=== PATIENT | female | born 1970 | race African-American/Black ===

== ENCOUNTER 2018-06-26 17:51 | Emergency (ER) | payer BC ==
--- NOTE | 2018-06-26 18:15 | ER Document Report ---
HPI - HPI Patient complains to provider of: left shoulder pain Onset: Other - 5 days Pain Level: 5 Context: 48-year-old female complaining of spontaneous onset of left shoulder pain. Hurts more when she internal externally rotates that and when she abducts it. No specific injury. Associated Symptoms: None Exacerbated by: Movement Relieved by: Denies - ROS ROS below otherwise negative: Yes Systems Reviewed and Negative: Yes All other systems reviewed and negative - REPRODUCTIVE Reproductive: DENIES: : - MUSCULOSKELETAL Musculoskeletal: REPORTS: Extremity pain Past Medical History - General Information source: Patient - Social History Smoking Status: Current Every Day Smoker Lives with: Family Family History: None Patient has suicidal ideation: No Patient has homicidal ideation: No - Past Medical History Cardiac Medical History: Reports: Hx Hypertension Pulmonary Medical History: Reports: Hx COPD Renal/ Medical History: Reports: Hx Kidney Stones. Denies: Hx Peritoneal Dialysis Surgical Hx: Negative - Immunizations Hx Diphtheria, Pertussis, Tetanus Vaccination: No Vertical Provider Document - CONSTITUTIONAL Agree With Documented VS: Yes Exam Limitations: No Limitations - INFECTION CONTROL TRAVEL OUTSIDE OF THE [place] IN LAST 30 DAYS: No - NECK Neck: Supple - Nontender - RESPIRATORY Respiratory: Breath Sounds Normal, No Respiratory Distress - CARDIOVASCULAR Cardiovascular: Regular Rate, Regular Rhythm - MUSCULOSKELETAL/EXTREMETIES Musculoskeletal/Extremeties: Tender - left bicep tendon at the bicepital groove , deltoid muscle. negative: Edema Notes: increased pain with external rotation. no deepika tenderness. - NEURO Level of Consciousness: Awake - DERM Integumentary: No Rash Course - Re-evaluation Re-evalutation: 06/26/18 19:29 X-rays negative per radiologist, I also looked at the films and they were negative as well. We will place the patient in a sling and recommend heat Tylenol and Motrin - Vital Signs Vital signs: Temp Pulse Resp BP Pulse Ox 98.8 F 82 18 134/89 H 99 06/26/18 17:59 06/26/18 17:59 06/26/18 17:59 06/26/18 17:59 06/26/18 17:59 Procedures - Immobilization Left Arm Time completed: 19:50 Pre-Proc Neuro Vasc Exam: Normal Immobilizer type: Sling Performed by: RN Post-Proc Neuro Vasc Exam: Normal Alignment checked and good: Yes Discharge - Discharge Clinical Impression: Muscle strain Left shoulder pain Qualifiers: Chronicity: acute Qualified Code(s): M25.512 - Pain in left shoulder Condition: Good Disposition: HOME, SELF-CARE Instructions: Acetaminophen, Ibuprofen (General) ([facility]), Sling to be Used ([facility]) , Temporary Sling ([facility]), Warm Packs ([facility]) Additional Instructions: Sling a few days to relax the muscle and tendon Tylenol up to 4000 mg a day for pain Motrin 800 mg up to 3 times a day for inflammation Warm compress See orthopedic doctor if this persists Prescriptions: Ibuprofen [Motrin 800 mg Tablet] 800 mg PO Q8HP PRN #30 tablet PRN Reason: Forms: Return to Work Referrals: JAIME CAIN MD [ACTIVE STAFF] - Follow up as needed
[2018-06-26 18:49] VITALS: BP 144/81
--- NOTE | 2018-06-26 19:21 | RADIOLOGY REPORT (SQ) ---
EXAM DESCRIPTION: SHOULDER LEFT 2 OR MORE VIEWS COMPLETED DATE/TIME: 06/26/2018 7:07 pm REASON FOR STUDY: pain left shoulder COMPARISON: None. NUMBER OF VIEWS: Three views. TECHNIQUE: Internal rotation, external rotation, and Y view images acquired of the left shoulder. LIMITATIONS: None. FINDINGS: MINERALIZATION: Normal. BONES: No acute fracture or dislocation. No worrisome bone lesions. JOINTS: No dislocation. VISUALIZED LUNGS AND RIBS: No pneumothorax. No rib fracture. SOFT TISSUES: No radiopaque foreign body. OTHER: No other significant finding. IMPRESSION: NEGATIVE STUDY OF THE LEFT SHOULDER. NO RADIOGRAPHIC EVIDENCE OF ACUTE INJURY. TECHNICAL DOCUMENTATION: JOB ID: [id number] [place]-72 2010 [employer]- All Rights Reserved Reading location - IP/workstation name: [email or web address]
== END 2018-06-26 19:55 | disposition home or self-care (01) ==
LOC: ER 17:51
DX: M25.512 Pain in left shoulder (principal); F17.200 Nicotine dependence, unspecified, uncomplicated; I10 Essential (primary) hypertension; J44.9 Chronic obstructive pulmonary disease, unspecified; Z87.442 Personal history of urinary calculi
CPT/HCPCS: 99283

== ENCOUNTER 2019-05-04 10:55 | Emergency (ER) | payer BC ==
--- NOTE | 2019-05-04 12:16 | ER Document Report ---
HPI - HPI Patient complains to provider of: fall, right neck and right thigh pain Time Seen by Provider: 05/04/19 11:52 Onset: Other - 5 days ago Onset/Duration: Sudden Quality of pain: Achy Severity: Mild Pain Level: 2 Context: 49 yr old female with the listed pmh, here for right neck/shoulder pain and right thigh pain after an accidental mechanical fall off a two step ladder 5 days ago with continued pain since. has continued to go to work since; however, due to her pain today she called out and is requesting a work note. denies any preceding fall sx. no pain anywhere else. no blood thinners, intoxication, or hx of this before. denies . pt is able to walk. denies hitting her head. no loc. no vomiting, numbness, tingling, weakness, seizures, ams, incontinence, saddle anesthesia, change in bowel or bladder, or any other sx. otc meds helping some. she is requesting a work note, and scripts for robaxin and aleve, stating she has had these before in the past and can take them and they work well. no spinal surgeries. she hasn't sought care until now. no other complaints at this time. she doesn't want any imaging either. Exacerbated by: Movement Relieved by: Remaining still Similar symptoms previously: No Recently seen / treated by doctor: No - ROS Systems Reviewed and Negative: Yes All other systems reviewed and negative - to include 10, unless mentioned in the hpi - REPRODUCTIVE Reproductive: DENIES: : Past Medical History - General Information source: Patient - Social History Smoking Status: Unknown if Ever Smoked Frequency of alcohol use: unknown Drug Abuse: None Family History: None Patient has suicidal ideation: No Patient has homicidal ideation: No - Past Medical History Cardiac Medical History: Reports: Hx Hypertension Pulmonary Medical History: Reports: Hx COPD Renal/ Medical History: Reports: Hx Kidney Stones. Denies: Hx Peritoneal Dialysis - Immunizations Hx Diphtheria, Pertussis, Tetanus Vaccination: No Vertical Provider Document - INFECTION CONTROL TRAVEL OUTSIDE OF THE [place] IN LAST 30 DAYS: No - HEENT Notes: GENERAL_APPEARANCE: well_nourished, alert, cooperative, no obvious discomfort. Pleasant, obese middle aged female, smiling, speaking in full sentences, in no sign of pain or resp distress, easily sitting up. VITALS: reviewed, see vital signs table. HEAD: normocephalic and atraumatic, no raccoon eyes, no bailey signs. no swelling or ttp. EARS: canals_clear_bilat, TMs_clear, no_discharge_from_ears. no hemotympanum EYES: EOMI without pain, conjunctiva_clear. PERRL, eyelids wnl. no drainage. no ttp or crepitation of the orbits. no sign of orbital/periorbital cellulitis. no hyphema. MOUTH: no_lacerations inside_mouth. no broken teeth. no tmj clicking or ttp. pharynx wnl. tongue protrudes midline. no drooling, tripoding, voice change, or stridor, no thrush or oral lesions. no tongue or lip swelling. NOSE: no drainage or epistaxis NECK: no_swelling on the neck. no midline bony tenderness. no step offs or deformities. there is mild ttp over the right trapezius musculature. spasm noted. palpation here reproduces pts neck/shoulder pain exactly. no overlying skin changes. no jvd. no carotid bruit. full rom. full strength. no meningeal signs. no sign of central cord syndrome. HEART: normal_rate, normal_rhythm, LUNGS: ctab. no chest wall ttp. no overlying skin changes. no flail chest or crepitation. ABDOMEN: normal_BS, soft, no_abd_tenderness, no rebound, guarding, distension, or peritoneal signs. no cva ttp. no overlying skin changes. BACK: no midline bony tenderness. no step offs or deformities RECTAL: deferred, however, no sign of loss of bowel or bladder or soiling of clothing. EXTREMITIES: strength 5/5 in all_extremities, good pulses all_extremities, no_abrasions\lacerations in the extremities, no_swelling\tenderness in the extremities other than over right mid thigh midshaft lateral femur. no overlying skin changes. no crepitation. full rom. normal gait. good hand stripper color. brisk cap refill. no shortening or rotation of the limbs or other signs of deformities unless otherwise noted. neg solo sign. neg guo squeeze. no foot drop. SKIN: warm, dry, good_color. no other grossly visible overlying skin changes or signs of trauma unless otherwise noted. NEURO: cranial nerves 2 - 12 intact, motor_intact, sensory_intact. cerebellar function intact GLASCOW_COMA_SCORE: (adult) - eyes_open_spontaneously_4, verbal_converses_and_oriented_5, motor_obeys_commands_6, glasgow_coma_total_15, MENTAL_STATUS: speech_clear, oriented_X_3, responds_appropriately to questions. Course - Re-evaluation Re-evalutation: pt here for a low impact minor accidental mechanical fall off a 2 step ladder with right trapezius muscle and right thigh muscle pain since. denies hitting head. no loc. no vomiting. no pain anywhere else. is able to walk. requesting a work note. pt doesn't want any imaging, is requesting robaxin and aleve for dc. otc meds helping pain. advised sx care. pain reproducible and spasms noted. sx likely musculoskeletal. will dc with a few robaxin. gave medication precautions. ice/heat to the area. otc meds for pain if not allergic. she is neurononfocal. no sign of cauda equina, spinal cord involvement, or central cord syndrome. advised to f/u with pcp in 1-2 days. return for any worsening symptoms. vss. well appearing. satting well on ra. neurononfocal. pt understands and agrees to plan. On reexam, pt remained stable. nontoxic. well appearing. pain controlled. tolerating po. requesting to go home. Documentation achieved through voice recording which my lead to some occasional accidental typographical errors. Extensive efforts have been made to proof read documentation to make sure these are the least as possible. 05/23/19 23:10 - Vital Signs Vital signs: Temp Pulse Resp BP Pulse Ox 98.2 F 92 20 147/93 H 98 05/04/19 11:00 05/04/19 11:00 05/04/19 11:00 05/04/19 11:00 05/04/19 11:00 Temp Pulse Resp BP Pulse Ox 05/04/19 12:31 98.1 F 71 18 141/88 H 100 05/04/19 11:00 98.2 F 92 20 147/93 H 98 Discharge - Discharge Clinical Impression: Strain of cervical portion of right trapezius muscle, Pain in right thigh Fall Qualifiers: Encounter type: initial encounter Qualified Code(s): W19.XXXA - Unspecified fall, initial encounter Condition: Stable Disposition: HOME, SELF-CARE Instructions: Shoulder Injury ([facility]), Leg Pain Nonspecific ([facility]) Additional Instructions: Follow-up with PCP 1 to 2 days. Return for any worsening symptoms. Ice/heat to the area. Do not drive, work, or operate machinery while taking the muscle relaxers. you can take Aleve as needed for any pain if not allergic. no other nsaids with the aleve. Follow-up with your PCP for recheck within 1 week if you are still having pain as you may need imaging as discussed. Prescriptions: Methocarbamol [Robaxin] 1,000 mg PO QID PRN #40 tablet PRN Reason: Muscle Spasms Forms: Return to Work
[2019-05-04 12:34] VITALS: BP 141/88
== END 2019-05-04 12:34 | disposition home or self-care (01) ==
LOC: ER 10:55
DX: S29.012A Strain of muscle and tendon of back wall of thorax, initial encounter (principal); R07.81 Pleurodynia; M79.18 Myalgia, other site; M54.2 Cervicalgia; W11.XXXA Fall on and from ladder, initial encounter; I10 Essential (primary) hypertension; J44.9 Chronic obstructive pulmonary disease, unspecified; E66.9 Obesity, unspecified
CPT/HCPCS: 99283

== ENCOUNTER 2019-08-03 04:45 | Emergency (ER) | payer BC ==
--- NOTE | 2019-08-03 06:20 | ER Document Report ---
ED General - General Chief Complaint: Swelling of Tongue Stated Complaint: TONGUE SWELLING Time Seen by Provider: 08/03/19 06:20 TRAVEL OUTSIDE OF THE [place] IN LAST 30 DAYS: No - HPI Patient complains to provider of: tongue swelling Notes: patient woke this am with right sided tongue swelling not on any prescription medications no new exposures or intakes mild right sided tongue pain but no redness/bleeding/scabbing to suggest injury no h/o this previously no family h/o similar no nausea/vomiting/wheezing no difficulty speaking or swallowing no neck pain or swelling - Related Data Allergies/Adverse Reactions: acetaminophen [From Percocet] Allergy (Verified 05/04/19 10:56) oxycodone [From Percocet] Allergy (Verified 05/04/19 10:56) Past Medical History - Social History Smoking Status: Current Every Day Smoker Frequency of alcohol use: Rare Drug Abuse: None Family History: None Patient has suicidal ideation: No Patient has homicidal ideation: No - Past Medical History Cardiac Medical History: Reports: Hx Hypertension Pulmonary Medical History: Reports: Hx COPD Renal/ Medical History: Reports: Hx Kidney Stones. Denies: Hx Peritoneal Dialysis - Immunizations Hx Diphtheria, Pertussis, Tetanus Vaccination: No Review of Systems - Review of Systems Constitutional: No symptoms reported EENT: Other - tongue swelling. denies: Difficulty swallowing, Throat swelling, Dental problem Cardiovascular: No symptoms reported Respiratory: No symptoms reported Gastrointestinal: No symptoms reported Genitourinary: No symptoms reported Female Genitourinary: No symptoms reported Musculoskeletal: No symptoms reported Skin: No symptoms reported Hematologic/Lymphatic: No symptoms reported Neurological/Psychological: No symptoms reported Physical Exam - Vital signs Vitals: Temp Pulse Resp BP Pulse Ox 98.1 F 74 17 151/93 H 97 08/03/19 04:54 08/03/19 04:54 08/03/19 04:54 08/03/19 04:54 08/03/19 04:54 Interpretation: Normal - General General appearance: Appears well, Alert - HEENT Head: Normocephalic, Atraumatic Eyes: Normal Pupils: PERRL Mouth/Lips: Other - the tongue is mildly enlarged R>L. midline and normal appearance of uvula. no gum swelling. no lip swelling. able to phonate normally - Respiratory Respiratory status: No respiratory distress Chest status: Nontender Breath sounds: Normal Chest palpation: Normal - Cardiovascular Rhythm: Regular Heart sounds: Normal auscultation Murmur: No - Abdominal Inspection: Normal Distension: No distension Bowel sounds: Normal Tenderness: Nontender Organomegaly: No organomegaly - Back Back: Normal, Nontender - Extremities General upper extremity: Normal inspection, Nontender, Normal color, Normal ROM, Normal temperature General lower extremity: Normal inspection, Nontender, Normal color, Normal ROM, Normal temperature, Normal weight bearing. No: Yamilka's sign - Neurological Neuro grossly intact: Yes Cognition: Normal Orientation: AAOx4 [place] Coma Scale Eye Opening: Spontaneous [place] Coma Scale Verbal: Oriented [place] Coma Scale Motor: Obeys Commands [place] Coma Scale Total: 15 Speech: Normal Motor strength normal: LUE, RUE, LLE, RLE Sensory: Normal - Psychological Associated symptoms: Normal affect, Normal mood - Skin Skin Temperature: Warm Skin Moisture: Dry Skin Color: Normal Course - Re-evaluation Re-evalutation: 08/03/19 06:31 tongue is clearly swollen will treat w/ solumedrol/pepcid/benadryl in ED 08/03/19 07:57 feels better understand return precautions understands not to drive after receiving iv benadryl - Vital Signs Vital signs: Temp Pulse Resp BP Pulse Ox 98.1 F 74 17 151/93 H 97 08/03/19 04:54 08/03/19 04:54 08/03/19 04:54 08/03/19 04:54 08/03/19 04:54 Discharge - Discharge Clinical Impression: Tongue swelling, Elevated blood pressure reading Condition: Stable Disposition: HOME, SELF-CARE Instructions: Angioedema ([facility]) Additional Instructions: return to ED with worsening of condition take medicine as directed follow up with primary doctor Prescriptions: Prednisone [Deltasone 20 mg Tablet] 3 tab PO DAILY 5 Days #15 tablet Famotidine [Pepcid 20 mg Tablet] 20 mg PO BID #10 tablet Cetirizine HCl [Zyrtec 10 mg Tablet] 1 tab PO DAILY #10 tablet Forms: Elevated Blood Pressure Referrals: JASON MAIER MD [HONORARY] - Follow up as needed
[2019-08-03] MEDS ORDERED: METHYLPREDNISOLONE INJ 125 MG/2 ML SDV IV ONE (06:28)
[2019-08-03] MEDS ORDERED: FAMOTIDINE INJ/PF 20 MG/2 ML SDV IV ONE (06:29)
[2019-08-03] MEDS ORDERED: DIPHENHYDRAMINE HCL 50 MG/ML VIAL IV ONE (06:29)
[2019-08-03 08:25] VITALS: BP 125/84
== END 2019-08-03 08:24 | disposition home or self-care (01) ==
LOC: ER 04:45
DX: R22.0 Localized swelling, mass and lump, head (principal); I10 Essential (primary) hypertension; F17.200 Nicotine dependence, unspecified, uncomplicated; J44.9 Chronic obstructive pulmonary disease, unspecified
CPT/HCPCS: J1200; J2930; S0028; 96374; 96375; 99283

== ENCOUNTER 2020-01-09 11:24 | Emergency (ER) | payer BC ==
--- NOTE | 2020-01-09 12:22 | ER Document Report ---
ED Extremity Problem, Lower - General Chief Complaint: Leg Pain Stated Complaint: RIGHT THIGH PAIN, SWELLING Time Seen by Provider: 01/09/20 12:14 Primary Care Provider: [facility] [[facility]] - Follow up as needed PANDA CADENA DO [Primary Care Provider] - Follow up as needed Mode of Arrival: Ambulatory Information source: Patient Notes: 49-year-old female presented to ED for complaint of right hip pain and swelling times a month. She states the pain is been getting worse so she came to the emergency room. She does stand on her feet a lot and has 2 jobs and does not take any time off. She is alert oriented respirations regular nonlabored speaking in full sentences. Her primary care is Dr. Cadena she states she has not talked to him about this pain yet. TRAVEL OUTSIDE OF THE [place] IN LAST 30 DAYS: No - HPI Patient complains to provider of: Pain Location: Buttock, Hip Occurred: Other - Last month Onset/Duration: Gradual, Persistent Quality of pain: Sharp, Throbbing Severity: Severe Pain Level: 5 Context: Other - No signs or symptoms of cauda equina, no loss control of bowel bladder, no saddle anesthesia, no loss of sensation or control of the lower legs Recent injury: No Associated symptoms: Painful ambulation Exacerbated by: Nothing Relieved by: Nothing - Related Data Allergies/Adverse Reactions: acetaminophen [From Percocet] Allergy (Verified 01/09/20 12:15) oxycodone [From Percocet] Allergy (Verified 01/09/20 12:15) Past Medical History - General Information source: Patient - Social History Smoking Status: Current Every Day Smoker Family History: None - Past Medical History Cardiac Medical History: Reports: Hx Hypertension Pulmonary Medical History: Reports: Hx Bronchitis EENT Medical History: Reports: None Neurological Medical History: Reports: None Endocrine Medical History: Reports: None Renal/ Medical History: Reports: Hx Kidney Stones Malignancy Medical History: Reports: None GI Medical History: Reports: None Musculoskeletal Medical History: Reports Hx Musculoskeletal Trauma Skin Medical History: Reports None Psychiatric Medical History: Reports: None Traumatic Medical History: Reports: None Infectious Medical History: Reports: None Past Surgical History: Reports: Other - Embolization to the fibroid in the u terus - Immunizations Hx Diphtheria, Pertussis, Tetanus Vaccination: No Review of Systems - Review of Systems Constitutional: No symptoms reported EENT: No symptoms reported Cardiovascular: No symptoms reported Respiratory: No symptoms reported Gastrointestinal: No symptoms reported Genitourinary: No symptoms reported Female Genitourinary: No symptoms reported Musculoskeletal: Back pain, Joint pain - Right hip, Muscle pain, Muscle stiffness Skin: No symptoms reported Hematologic/Lymphatic: No symptoms reported Neurological/Psychological: No symptoms reported -: Yes All other systems reviewed and negative Physical Exam - Vital signs Vitals: Temp Pulse Resp BP Pulse Ox 99.2 F 86 18 137/82 H 99 01/09/20 11:48 01/09/20 11:48 01/09/20 11:48 01/09/20 11:48 01/09/20 11:48 Interpretation: Normal - General General appearance: Appears well, Alert - HEENT Head: Normocephalic, Atraumatic Eyes: Normal Pupils: PERRL - Respiratory Respiratory status: No respiratory distress Chest status: Nontender Breath sounds: Normal Chest palpation: Normal - Cardiovascular Rhythm: Regular Heart sounds: Normal auscultation Murmur: No - Abdominal Inspection: Normal Distension: No distension Bowel sounds: Normal Tenderness: Nontender Organomegaly: No organomegaly - Back Back: Normal, Tender - Right hip, Vertebra tenderness - Right buttocks - Extremities General upper extremity: Normal inspection, Nontender, Normal color, Normal ROM, Normal temperature General lower extremity: Normal inspection, Nontender, Normal color, Normal ROM, Normal temperature, Normal weight bearing. No: Yamilka's sign - Neurological Neuro grossly intact: Yes Cognition: Normal Orientation: AAOx4 [place] Coma Scale Eye Opening: Spontaneous [place] Coma Scale Verbal: Oriented [place] Coma Scale Motor: Obeys Commands [place] Coma Scale Total: 15 Speech: Normal Motor strength normal: LUE, RUE, LLE, RLE Sensory: Normal - Psychological Associated symptoms: Normal affect, Normal mood - Skin Skin Temperature: Warm Skin Moisture: Dry Skin Color: Normal Course - Re-evaluation Re-evalutation: 01/09/20 21:56 No acute changes to the back or the hip. Patient was given written report as well as discuss the results of the x-rays. Patient was instructed to please follow-up with the primary care doctor and/or back specialist. Patient verbalized understanding and agreement treatment plan patient was discharged home. - Vital Signs Vital signs: Temp Pulse Resp BP Pulse Ox 98.6 F 71 18 141/82 H 98 01/09/20 13:56 01/09/20 13:56 01/09/20 13:56 01/09/20 13:56 01/09/20 13:56 - Diagnostic Test Radiology reviewed: Image reviewed, Reports reviewed Discharge - Discharge Clinical Impression: Right hip pain Condition: Stable Disposition: HOME, SELF-CARE Additional Instructions: You were seen today for right hip pain. Your x-ray for the low back and the hip were negative any acute changes. You will need to follow-up with employment law specialist FOLLOW-UP CARE: If you have been referred to a physician for follow-up care, call the physicians office for an appointment as you were instructed or within the next two days. If you experience worsening or a significant change in your symptoms, notify the physician immediately or return to the Emergency Department at any time for re-evaluation. Forms: Elevated Blood Pressure, Smoking Cessation Education, Return to Work Referrals: PANDA CADENA DO [Primary Care Provider] - Follow up as needed [facility] [Provider [facility]] - Follow up as needed
--- NOTE | 2020-01-09 13:16 | RADIOLOGY REPORT (SQ) ---
EXAM DESCRIPTION: HIP RIGHT AP/LATERAL COMPLETED DATE/TIME: 01/09/2020 12:53 pm REASON FOR STUDY: Pain to the right hip down for months COMPARISON: None. NUMBER OF VIEWS: Two views. TECHNIQUE: AP and frog-leg view of the right hip. LIMITATIONS: None. FINDINGS: MINERALIZATION: Normal. RIGHT HIP: No fracture or dislocation. No worrisome bone lesions. No contour deformity. No joint sp bita narrowing. OPPOSITE HIP: No fracture or dislocation. No worrisome bone lesions. SOFT TISSUES: No findings. OTHER: No other significant finding. IMPRESSION: NEGATIVE STUDY OF THE RIGHT HIP. NO EXPLANATION FOR PAIN. TECHNICAL DOCUMENTATION: JOB ID: [id number] 2010 [employer]- All Rights Reserved Reading location - IP/workstation name: [email or web address]
--- NOTE | 2020-01-09 13:16 | RADIOLOGY REPORT (SQ) ---
EXAM DESCRIPTION: L SPINE WHOLE COMPLETED DATE/TIME: 01/09/2020 12:53 pm REASON FOR STUDY: Pain to the right hip down for months COMPARISON: None. NUMBER OF VIEWS: Five views including obliques. TECHNIQUE: AP, lateral, oblique, and sacral radiographic images acquired of the lumbar spine. LIMITATIONS: None. FINDINGS: MINERALIZATION: Normal. SEGMENTATION: Normal. No transitional anatomy. ALIGNMENT: Normal. VERTEBRAE: Maintained height. No fracture or worrisome bone lesion. DISCS: Disc space narrowing at L5-S1. Mild disc space narrowing at L1-L2 and L2-L3 as well. POSTERIOR ELEMENTS: Pedicles and facets are intact. No pars defect or posterior arch defects. HARDWARE: None in the spine. PARASPINAL SOFT TISSUES: Normal. PELVIS: Calcified uterine fibroid. OTHER: No other significant finding. IMPRESSION: Mild spondylosis. No acute findings in the lumbar spine. TECHNICAL DOCUMENTATION: JOB ID: [id number] 2010 [employer]- All Rights Reserved Reading location - IP/workstation name: [email or web address]
[2020-01-09 13:57] VITALS: BP 141/82
== END 2020-01-09 14:21 | disposition home or self-care (01) ==
LOC: ER 11:24
DX: M25.551 Pain in right hip (principal); F17.200 Nicotine dependence, unspecified, uncomplicated; I10 Essential (primary) hypertension; Z88.6 Allergy status to analgesic agent
CPT/HCPCS: 72110; 99283

== ENCOUNTER 2020-07-16 11:23 | Emergency (ER) | payer OTHER, BC ==
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
[2020-07-16] MEDS ORDERED: KETOROLAC TROMETHAMINE INJ/PF 30 MG/1 ML SDV IV ONE (12:33)
[2020-07-16 12:40] LABS: ABSOLUTE BASOPHILS # (AUTO) 0.1 10^3/uL (0.0-0.2); ABSOLUTE EOSINOPHILS # (AUTO) 0.1 10^3/uL (0.0-0.6); ABSOLUTE LYMPHOCYTES (AUTO) 2.4 10^3/uL (0.5-4.7); ABSOLUTE MONOCYTES (AUTO) 0.9 10^3/uL (0.1-1.4); ABSOLUTE NEUT (AUTO) 12.2 10^3/uL (1.7-8.2); BASOPHILS % (AUTO) 0.3 % (0-2); EOSINOPHILS % (AUTO) 0.7 % (0-6); HEMATOCRIT 38.6 % (36.0-47.0); HEMOGLOBIN 13.6 g/dL (12.0-15.5); LYMPHOCYTES % (AUTO) 15.6 % (13-45); MEAN CORPUSCULAR HEMOGLOBIN 30.1 pg (27.0-33.4); MEAN CORPUSCULAR HGB CONC 35.2 g/dL (32.0-36.0); MEAN CORPUSCULAR VOLUME 86 fl (80-97); MONOCYTES % (AUTO) 5.7 % (3-13); PLATELET COUNT 229 10^3/uL (150-450); RED BLOOD COUNT 4.52 10^6/uL (3.72-5.28); RED CELL DISTRIBUTION WIDTH 12.8 % (11.5-14.0); SEGMENTED NEUTROPHILS % (AUTO) 77.7 % (42-78); TOTAL CELLS COUNTED % (AUTO) 100 %; WHITE BLOOD COUNT 15.7 10^3/uL (4.0-10.5)
[2020-07-16] MEDS ORDERED: DIPH/PERTUSS(ACELL)/TETANUS VAC/PF 0.5 ML SYR (>=10YO) IM ONE (12:45)
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
[2020-07-16 13:03] LABS: ALBUMIN 4.1 g/dL (3.5-5.0); ALKALINE PHOSPHATASE 64 U/L (38-126); ANION GAP 9 (5-19); ASPARTATE AMINO TRANSFERASE 26 U/L (14-36); BILIRUBIN,DIRECT 0.2 mg/dL (0.0-0.4); BLOOD UREA NITROGEN 12 mg/dL (7-20); CALCIUM 9.6 mg/dL (8.4-10.2); CARBON DIOXIDE 23 mmol/L (22-30); CHLORIDE 106 mmol/L (98-107); GLUCOSE 91 mg/dL (75-110); POTASSIUM 3.7 mmol/L (3.6-5.0); TOTAL PROTEIN 6.8 g/dL (6.3-8.2)
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
[2020-07-16 14:48] VITALS: BP 133/70
--- NOTE | 2020-07-16 19:08 | EKG REPORT ---
SEVERITY:- OTHERWISE NORMAL ECG - SINUS ARRHYTHMIA, RATE 59-83 : Confirmed by: Timi Caputo 16-Jul-2020 19:08:24
== END 2020-07-16 14:20 | disposition home or self-care (01) ==
LOC: ER 11:23
DX: S20.212A Contusion of left front wall of thorax, initial encounter (principal); S40.022A Contusion of left upper arm, initial encounter; S70.12XA Contusion of left thigh, initial encounter; S80.212A Abrasion, left knee, initial encounter; V49.40XA Driver injured in collision with unspecified motor vehicles in traffic accident, initial encounter; F17.200 Nicotine dependence, unspecified, uncomplicated; I10 Essential (primary) hypertension; Z79.899 Other long term (current) drug therapy; Z23 Encounter for immunization; Z88.8 Allergy status to other drugs, medicaments and biological substances; Z88.6 Allergy status to analgesic agent; Z88.5 Allergy status to narcotic agent
CPT/HCPCS: 93005; 99285; 90471; 96374; 36415; 85025; 80053; 71260; 90715; 93010; J1885

== ENCOUNTER 2020-10-27 17:32 | Emergency (ER) | payer BC, OTHER ==
[2020-10-27] MEDS ORDERED: IBUPROFEN 800 MG TABLET PO ONE (18:27)
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
--- NOTE | 2020-10-27 19:16 | RADIOLOGY REPORT (SQ) ---
EXAM DESCRIPTION: KNEE LEFT 4 VIEW IMAGES COMPLETED DATE/TIME: 10/27/2020 6:43 pm REASON FOR STUDY: And swelling to the left knee COMPARISON: None. NUMBER OF VIEWS: Four views. TECHNIQUE: AP, lateral, and both oblique radiographic images acquired of the left knee. LIMITATIONS: None. FINDINGS: MINERALIZATION: Normal. BONES: No acute fracture or dislocation. No worrisome bone lesions. JOINT: No effusion. SOFT TISSUES: No soft tissue swelling. No radio-opaque foreign body. OTHER: No other significant finding. IMPRESSION: NEGATIVE STUDY OF THE LEFT KNEE. NO RADIOGRAPHIC EVIDENCE OF ACUTE INJURY. TECHNICAL DOCUMENTATION: JOB ID: [id number] 2010 [employer]- All Rights Reserved Reading location - IP/workstation name: [email or web address]
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
--- NOTE | 2020-10-27 21:42 | RADIOLOGY REPORT (SQ) ---
US LOWER EXTREMITY VEINS HISTORY: Leg pain and swelling. COMPARISON: None. TECHNIQUE: Grayscale, color Doppler, and spectral Doppler images of the left lower extremity were performed. FINDINGS: The common femoral, superficial femoral and popliteal veins are patent and compressible. Normal augmentation and color Doppler blood flow in the aforementioned veins. The visualized calf veins are also patent. Diffuse subcutaneous edema is present. IMPRESSION: No DVT in the left lower extremity.
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
[2020-10-28 05:05] VITALS: BP 125/76
== END 2020-10-28 05:35 | disposition home or self-care (01) ==
LOC: ER 17:32
DX: M25.562 Pain in left knee (principal); M79.89 Other specified soft tissue disorders; I10 Essential (primary) hypertension; F17.200 Nicotine dependence, unspecified, uncomplicated; Z79.899 Other long term (current) drug therapy; Z88.8 Allergy status to other drugs, medicaments and biological substances; Z88.6 Allergy status to analgesic agent; Z88.5 Allergy status to narcotic agent
CPT/HCPCS: 93971; 99284